=== PATIENT | male | born 1970 | race Caucasian/White ===

== ENCOUNTER 2018-11-21 16:06 | Emergency (ER) | payer SELFPAY ==
[~2018-11-21] VITALS: Ht 195.5 cm; Wt 117.0 kg
[~2018-11-21 16:06] MED LIST: AMOXICILLIN500 MG PO; GLIPIZIDE5 MG PO; HYDROCODONE BIT1 T11 PO; LEVOFLOXACIN500 MG PO; LOMOTIL 0.025 M1 TA1 PO; METFORMIN500 MG PO; Motrin,Rufen800 MG PO; PROAIR HFA8.5 GM IH; SIMVASTATIN5 MG PO; [UNRECOGNIZED DRUG - OTHER] PO
[2018-11-21] MEDS ORDERED: PREDNISONE50 MG PO ×2 (16:48→17:17)
[2018-11-21] MEDS ORDERED: ZITHROMAX250 MG PO (17:17)
== END 2018-11-21 17:27 | disposition home or self-care (01) ==
LOC: ED 16:06
DX: J20.9 Acute bronchitis, unspecified (principal); Z79.899 Other long term (current) drug therapy; Z79.84 Long term (current) use of oral hypoglycemic drugs

== ENCOUNTER 2022-12-20 14:47 | Emergency (ER) | payer MEDICAID ==
[~2022-12-20] VITALS: Ht 193 cm
[~2022-12-20 14:47] MED LIST changes: +PREDNISONE50 MG PO; +ZITHROMAX250 MG PO
[2022-12-20] MEDS ORDERED: TRAMADOL HCL50 MG PO (16:35)
[2022-12-20] MEDS ORDERED: SEPTDS PO (16:35)
[2022-12-20] MEDS ORDERED: CEPHALEXIN500 M1 PO (16:35)
== END 2022-12-20 16:46 | disposition home or self-care (01) ==
LOC: ED 14:47
DX: L02.413 Cutaneous abscess of right upper limb (principal); I10 Essential (primary) hypertension; E11.9 Type 2 diabetes mellitus without complications; Z98.890 Other specified postprocedural states

== ENCOUNTER → 2022-12-22 | Outpatient (CLI) | payer MEDICAID ==
[~2022-12-22] MED LIST changes: +CEPHALEXIN500 M1 PO; +SEPTDS PO; +TRAMADOL HCL50 MG PO
== END | disposition home or self-care (01) ==
LOC: WOUNDCARE 02:31
PROVIDERS: ATTEND Nurse Practitioner Family
DX: L02.411 Cutaneous abscess of right axilla (principal); I10 Essential (primary) hypertension; E11.9 Type 2 diabetes mellitus without complications; L03.818 Cellulitis of other sites; F17.290 Nicotine dependence, other tobacco product, uncomplicated

== ENCOUNTER → 2022-12-27 | Outpatient (CLI) | payer MEDICAID | LOC: WOUNDCARE 01:44 | PROVIDERS: ATTEND Nurse Practitioner Family | DX: L02.411 Cutaneous abscess of right axilla (principal); L03.818 Cellulitis of other sites; I10 Essential (primary) hypertension; F17.290 Nicotine dependence, other tobacco product, uncomplicated ==

== ENCOUNTER → 2023-01-11 | Outpatient (CLI) | payer MEDICAID ==
[2023-01-11 17:58] LABS: BASO # 0.2 10*3/uL (0.0-0.1); BASO % 1.7 % (0.0-1.0); EOS # 0.3 10*3/uL (0.0-0.4); EOS % 3.5 % (1.0-4.0); LYMPH % 30.9 % (27.0-41.0); MEAN CELL VOLUME 85.8 fl (80.0-94.0); MEAN CORPUSCULAR HGB 30.3 pg (27.0-31.0); MEAN CORPUSCULAR HGB CONC 35.3 g/dl (33.0-37.0); MEAN PLATELET VOLUME 10.2 fl (9.6-12.3); MONO # 0.8 10*3/uL (0.1-1.0); MONO % 8.5 % (3.0-9.0); NEUT # 5.3 10*3/uL (2.3-7.9); PLATELET COUNT AUTOMATED 201 10*3/uL (130-400); RED BLOOD COUNT 5.48 10*6/uL (4.50-5.90); RED CELL DISTRI WIDTH 12.8 % (0-14.5); WHITE BLOOD COUNT 9.7 10*3/uL (4.8-10.8)
[2023-01-11 18:15] LABS: URINE CREATININE RANDOM 127.28 mg/dL
[2023-01-11 18:19] LABS: ALKALINE PHOSPHATASE 88 U/L (46-116); BUN 14 mg/dl (9-23); CHLORIDE 100 mmol/L (98-107); CHOLESTEROL 242 mg/dL (<200); FREE T4 1.14 ng/dl (0.89-1.76); LDL CHOLESTEROL 131 mg/dL (9-159); SGPT/ALT 22 U/L (10-49); TOTAL PROTEIN 7.7 gm/dL (6.0-8.0); TRIGLYCERIDES 333 mg/dl (<150)
[2023-01-11 18:32] LABS: VITAMIN D, 25-HYDROXY 28.5 ng/mL (30-100)
== END | disposition home or self-care (01) ==
LOC: RESCLI 01:49
PROVIDERS: Internal Medicine; ATTEND Internal Medicine
DX: E55.9 Vitamin D deficiency, unspecified (principal); E78.2 Mixed hyperlipidemia; I10 Essential (primary) hypertension; E11.65 Type 2 diabetes mellitus with hyperglycemia; Z12.5 Encounter for screening for malignant neoplasm of prostate; Z78.9 Other specified health status; G62.9 Polyneuropathy, unspecified; F41.9 Anxiety disorder, unspecified; G47.33 Obstructive sleep apnea (adult) (pediatric); Z98.890 Other specified postprocedural states; Z82.49 Family history of ischemic heart disease and other diseases of the circulatory system; F17.210 Nicotine dependence, cigarettes, uncomplicated; Z79.899 Other long term (current) drug therapy

== ENCOUNTER → 2023-01-12 | Outpatient (CLI) | payer MEDICAID | END | disposition home or self-care (01) | LOC: WOUNDCARE 07:24 | PROVIDERS: ATTEND Nurse Practitioner Family | DX: L02.411 Cutaneous abscess of right axilla (principal); L03.818 Cellulitis of other sites; E11.9 Type 2 diabetes mellitus without complications; I10 Essential (primary) hypertension; F17.290 Nicotine dependence, other tobacco product, uncomplicated ==

== ENCOUNTER → 2023-01-25 | Outpatient (CLI) | payer MEDICAID | END | disposition home or self-care (01) | LOC: RESCLI 01:26 | PROVIDERS: ATTEND Internal Medicine | DX: I10 Essential (primary) hypertension (principal); F17.200 Nicotine dependence, unspecified, uncomplicated; E78.2 Mixed hyperlipidemia; G47.00 Insomnia, unspecified; E11.65 Type 2 diabetes mellitus with hyperglycemia; Z98.890 Other specified postprocedural states; Z82.49 Family history of ischemic heart disease and other diseases of the circulatory system; Z79.899 Other long term (current) drug therapy ==

== ENCOUNTER → 2023-01-30 | Outpatient (CLI) | payer MEDICAID | END | disposition home or self-care (01) | LOC: WOUNDCARE 01:31 | PROVIDERS: ATTEND Nurse Practitioner Family | DX: L02.411 Cutaneous abscess of right axilla (principal); L03.818 Cellulitis of other sites; E11.9 Type 2 diabetes mellitus without complications; I10 Essential (primary) hypertension; F17.290 Nicotine dependence, other tobacco product, uncomplicated ==

== ENCOUNTER → 2023-03-08 | Outpatient (CLI) | payer MEDICAID | END | disposition home or self-care (01) | LOC: WOUNDCARE 01-26 01:00 → RESCLI 01:46 | PROVIDERS: ATTEND Family Medicine | DX: I10 Essential (primary) hypertension (principal); E78.2 Mixed hyperlipidemia; E11.65 Type 2 diabetes mellitus with hyperglycemia; G47.00 Insomnia, unspecified; G47.33 Obstructive sleep apnea (adult) (pediatric); F17.210 Nicotine dependence, cigarettes, uncomplicated; Z82.49 Family history of ischemic heart disease and other diseases of the circulatory system; Z98.890 Other specified postprocedural states; Z79.899 Other long term (current) drug therapy ==

== ENCOUNTER → 2023-04-12 | Outpatient (CLI) | payer MEDICAID ==
[2023-04-12 14:33] LABS: BUN 15 mg/dl (9-23); CHLORIDE 107 mmol/L (98-107); POTASSIUM 4.4 mmol/L (3.4-5.1)
== END | disposition home or self-care (01) ==
LOC: RESCLI 00:38
PROVIDERS: Internal Medicine; ATTEND Internal Medicine
DX: E78.2 Mixed hyperlipidemia (principal); I10 Essential (primary) hypertension; E11.65 Type 2 diabetes mellitus with hyperglycemia; G47.00 Insomnia, unspecified; F17.210 Nicotine dependence, cigarettes, uncomplicated; M79.606 Pain in leg, unspecified; Z82.49 Family history of ischemic heart disease and other diseases of the circulatory system; Z98.890 Other specified postprocedural states; Z79.899 Other long term (current) drug therapy

== ENCOUNTER → 2023-07-19 | Outpatient (CLI) | payer MEDICAID | END | disposition home or self-care (01) | LOC: RESCLI 01:18 | PROVIDERS: ATTEND Student in an Organized Health Care Education/Training Program | DX: I10 Essential (primary) hypertension (principal); Z12.11 Encounter for screening for malignant neoplasm of colon; G47.00 Insomnia, unspecified; E11.65 Type 2 diabetes mellitus with hyperglycemia; E78.2 Mixed hyperlipidemia; F17.200 Nicotine dependence, unspecified, uncomplicated; Z82.49 Family history of ischemic heart disease and other diseases of the circulatory system; Z98.890 Other specified postprocedural states; Z79.899 Other long term (current) drug therapy ==

== ENCOUNTER → 2023-10-18 | Outpatient (CLI) | payer MEDICAID | END | disposition home or self-care (01) | LOC: RESCLI 10:16 | PROVIDERS: ATTEND Internal Medicine | DX: E11.9 Type 2 diabetes mellitus without complications (principal); N52.9 Male erectile dysfunction, unspecified; E78.2 Mixed hyperlipidemia; I10 Essential (primary) hypertension; Z98.890 Other specified postprocedural states; F17.210 Nicotine dependence, cigarettes, uncomplicated; Z82.49 Family history of ischemic heart disease and other diseases of the circulatory system; Z79.899 Other long term (current) drug therapy ==